=== PATIENT | female | born 1985 | race Caucasian/White ===

== ENCOUNTER 2023-11-30 15:34 | Outpatient (CLI) | payer BC | END 2023-11-30 15:35 | disposition home or self-care (01) | LOC: CSHMAMMO 15:34 | PROVIDERS: ATTEND Family Medicine | DX: Z12.31 Encounter for screening mammogram for malignant neoplasm of breast (principal) | CPT/HCPCS: 77063; 77067 ==

== ENCOUNTER 2024-12-20 10:39 | Outpatient (CLI) | payer BC | END 2024-12-20 10:40 | disposition home or self-care (01) | LOC: CSHMAMMO 10:39 | PROVIDERS: ATTEND Student in an Organized Health Care Education/Training Program | DX: Z12.31 Encounter for screening mammogram for malignant neoplasm of breast (principal); Z80.3 Family history of malignant neoplasm of breast | CPT/HCPCS: 77063; 77067 ==